=== PATIENT | male | born 1955 | race Hispanic/Latino ===

== ENCOUNTER 2022-01-27 19:55 | Emergency (ER) | payer BC ==
[~2022-01-27] VITALS: Ht 170.2 cm; Wt 102.5 kg
[~2022-01-27 19:55] MED LIST: AMLODIPINE BESY10 MG PO; ASPIR 8181 MG PO; BENICAR20 MG PO; CARAFATE1 GM/10 ML PO; CARVEDILOL12.5 MG PO; CLONAZEPAM1 MG PO; CRESTOR10 MG PO; DEXILANT60 MG PO; DOCUSATE SODIU100 MG PO; FINASTERIDE5 MG PO; FUROSEMIDE40 MG PO; GLIMEPIRIDE2 MG PO; IBUPROFEN400 MG PO; IMITREX25 MG PO; LEVOCETIRIZINE D5 MG PO; LEVOTHYROXINE50 MCG PO; MAXALT MLT10 MG PO; METFORMIN HCL500 MG PO; METHOCARBAMOL750 MG PO; NITROSTAT0.4 MG SL; NORCO 7.5-3251 EACH PO; RANITIDINE HCL150 MG PO; SERTRALINE HCL100 MG PO; SPIRONOLACTONE25 MG PO; TOPIRAMATE25 MG PO; TRADJENTA5 MG PO
[2022-01-27 20:21] LABS: BASOPHILS # (AUTO) 0.1 (0.0-0.1); BASOPHILS % 0.7 % (0.0-1.0); EOSINOPHILS # (AUTO) 0.2 (0.0-0.4); EOSINOPHILS % 2.1 % (0.0-6.0); HEMATOCRIT 37.8 % (38.2-49.6); HEMOGLOBIN 12.4 g/dL (14.0-18.0); LYMPHOCYTES # (AUTO) 2.9 (1.0-3.2); LYMPHOCYTES % 29.2 % (18.0-39.1); MEAN CORPUSCULAR HEMOGLOBIN 29.7 pg (28-32); MEAN CORPUSCULAR HGB CONC 32.8 g/dL (31-35); MEAN CORPUSCULAR VOLUME 90.4 fL (81-99); MONOCYTES % 10.2 % (4.4-11.3); NEUTROPHILS # (AUTO) 5.6 (2.1-6.9); NEUTROPHILS % 57.5 % (38.7-80.0); PLATELET COUNT 248 x10e3/uL (140-360); RED BLOOD COUNT 4.18 x10e6/uL (4.3-5.7); RED CELL DISTRIBUTION WIDTH 13.3 % (11.7-14.4)
[2022-01-27 20:39] LABS: ALBUMIN 3.8 g/dL (3.5-5.0); ANION GAP 12.3 mmol/L (8-16); CREATININE, SERUM 1.45 mg/dL (0.72-1.25); POTASSIUM 4.3 mmol/L (3.5-5.1)
[2022-01-27 20:45] LABS: CREATINE KINASE MB 3.7 ng/mL (0-5.0)
[2022-01-27 23:08] VITALS: BP 104/71
== END 2022-01-27 23:10 | disposition home or self-care (01) ==
LOC: ER 20:12
DX: R07.9 Chest pain, unspecified (principal); I10 Essential (primary) hypertension; E11.65 Type 2 diabetes mellitus with hyperglycemia; E78.5 Hyperlipidemia, unspecified; K21.9 Gastro-esophageal reflux disease without esophagitis; F41.9 Anxiety disorder, unspecified; Z85.47 Personal history of malignant neoplasm of testis
CPT/HCPCS: 36415; 71045; 80053; 82550; 82553; 84484; 85025; 93005; 99284